=== PATIENT | male | born 1990 | race Caucasian/White ===

== ENCOUNTER 2018-10-10 02:54 | Emergency (ER) | payer BC, OTHER ==
[2018-10-10] MEDS ORDERED: ONDANSETRON 4 MG/2 ML VIAL IVP STA (03:17)
[2018-10-10] MEDS ORDERED: GLUCAGON 1 MG/ML VIAL IVP STA (03:17)
--- NOTE | 2018-10-10 03:17 | ED ---
General Adult HPI - General Chief complaint: Recheck/Abnormal Lab/Rx Stated complaint: Food stuck in throat Source: patient Mode of arrival: ambulatory - History of Present Illness Initial comments: Chapo is a previously healthy 28-year-old male who presents the emergency department today for evaluation of esophageal food bolus. Patient reports that he ate a roast around 7 PM, he is a sensation that it is stuck in his esophagus. Patient reports he's had this sensation in the past when eating, however usually resolves within 20 is 30 minutes. Patient reports that he has been drinking carbonated soda and water throughout the evening continues to throw it up. . Patient reports he did have endoscopy years ago and was told that he had sores in his esophagus, he doesn't recall the exact details of why he had the endoscopy or what the diagnosis were. He does not follow with GI. - Related Data Home Medications Medication Instructions Recorded Confirmed Dextroamphetamine/Amphetamine 20 mg PO BID 10/10/18 10/10/18 [Adderall] Allergies Allergy/AdvReac Type Severity Reaction Status Date / Time No Known Allergies Allergy Verified 10/10/18 03:10 Review of Systems ROS Statement: Those systems with pertinent positive or pertinent negative responses have been documented in the HPI. ROS Other: All systems not noted in ROS Statement are negative. Past Medical History Past Medical History: No Reported History History of Any Multi-Drug Resistant Organisms: None Reported Additional Past Surgical History / Comment(s): Tubes in his ears, [place] teeth removed Past Psychological History: ADD/ADHD Smoking Status: Never smoker Past Alcohol Use History: Occasional Past Drug Use History: Marijuana General Exam - General Exam Comments Initial Comments: Physical Exam GENERAL: Patient is well-developed and well-nourished. Patient is nontoxic and well-hydrated and is in mild distress, appears uncomfortable HENT: Normocephalic, Atraumatic. EYES: PERRL, EOMI PULMONARY: Unlabored respirations. No audible rales rhonchi or wheezing was noted. CARDIOVASCULAR: There is a regular rate and rhythm without any murmurs gallops or rubs. ABDOMEN: Soft and nontender with normal bowel sounds. SKIN: Skin is clear with no lesions or rashes and otherwise unremarkable. : Deferred NEUROLOGIC: Patient is alert and oriented x3. Moving all extremities spontaneously MUSCULOSKELETAL: Normal extremities with adequate strength and full range of motion. No lower extremity swelling or edema. No calf tenderness. PSYCHIATRIC: Normal psychiatric evaluation. Limitations: no limitations Course Vital Signs 10/10/18 03:06 Temperature 98.3 F Pulse Rate 86 Respiratory 20 Rate Blood Pressure 132/89 O2 Sat by Pulse 99 Oximetry Medical Decision Making - Medical Decision Making Patient was seen and evaluated, history is obtained from patient Patient's history and physical exam are concerning for an esophageal food bolus the patient reports a sensation of having food stuck in his esophagus 8 hours after eating roast We'll attempt to treat with glucagon and Zofran Patient given glucagon, zofran, attempted to drink rajwinder ruben, unable tolerate by mouth intake Patient care was discussed with GI numerical control machine operator Dr. Ricks who recommends IV fluids and plan for endoscopy at 7 AM he will contact the endoscopy team She was updated on plan is agreeable Morphine was ordered for discomfort Feeding worsen the patient's nausea and he vomited, he did vomit up a large unchewed piece of beef. Patient reports resolution of his discomfort after vomiting. Patient able to tolerate oral secretions and is drinking water without difficulty. At this time the patient stable for discharge home. I did discuss with the patient the need to slow down all eating and she will more thoroughly as he reports that food impaction such as this happen to him frequently. All questions pertaining care were answered the best my ability return parameters were discussed patient was discharged home in stable condition. Disposition Clinical Impression: Esophageal obstruction due to food impaction Disposition: HOME SELF-CARE Condition: Good Instructions: Esophageal Foreign Body (ED) Is patient prescribed a controlled substance at d/c from ED?: No Referrals: Bernadette Busch DO [Primary Care Provider] - 1-2 days Sunday Schaffer MD [STAFF PHYSICIAN] - 1-2 days Time of Disposition: 05:13
[2018-10-10] MEDS ORDERED: MORPHINE SULFATE 4 MG/ML SYRINGE IVP STA (03:57)
[2018-10-10] MEDS ORDERED: SODIUM CHLORIDE 0.9% 1,000 ML IV ONE (03:57)
[2018-10-10] MEDS ORDERED: SODIUM CHLORIDE 0.9% 1,000 ML IV SCH (04:00)
[2018-10-10 05:46] VITALS: BP 131/82; PULSE 83; RESP 18; TEMP 97.9
== END 2018-10-10 05:27 | disposition home or self-care (01) ==
LOC: EC 02:54
DX: T18.128A Food in esophagus causing other injury, initial encounter (principal); F90.9 Attention-deficit hyperactivity disorder, unspecified type; Z79.899 Other long term (current) drug therapy
CPT/HCPCS: 99283; 96374; 96375 ×2; 96361; J2270; J1610; J2405

== ENCOUNTER 2020-10-12 19:57 | Emergency (ER) | payer BC, OTHER ==
[2020-10-12 20:02] VITALS: BP 127/75; PULSE 93; RESP 16; TEMP 98.1
[2020-10-12] MEDS ORDERED: PROPARACAINE 0.5% OPHTH DROPS 15 ML BTL RIGHT EYE STA (20:03)
[2020-10-12] MEDS ORDERED: FLUORESCEIN STRIPS 1 MG STRIP RIGHT EYE ONE (20:03)
--- NOTE | 2020-10-12 20:04 | ED ---
Eye Problem HPI - General Chief complaint: Eye Problems Stated complaint: Poss object in right eye Time Seen by Provider: 10/12/20 20:03 Source: patient Mode of arrival: ambulatory Limitations: no limitations - History of Present Illness Initial comments: 30-year-old male presenting to the emergency department with a chief complaint of foreign body in the right eye. Patient states he was cutting a [place] tree when a branch hit him in the face, particularly on the right eye. Patient reports he removed a piece of the branch that was stuck inside of his eye. She did wear contacts. States there was mild pain when the incident occurred. He did notice some blood. Denies any pain with extraocular movements. States this occurred about one hour prior to arrival. - Related Data Home Medications Medication Instructions Recorded Confirmed Dextroamphetamine/Amphetamine 20 mg PO BID 10/10/18 10/10/18 [Adderall] Previous Rx's Medication Instructions Recorded Tobramycin [Tobrex 0.3% Ophth Soln] 1 drop RIGHT EYE Q4HR #5 ml 10/12/20 Allergies Allergy/AdvReac Type Severity Reaction Status Date / Time No Known Allergies Allergy Verified 10/12/20 20:02 Review of Systems ROS Statement: Those systems with pertinent positive or pertinent negative responses have been documented in the HPI. ROS Other: All systems not noted in ROS Statement are negative. Past Medical History Past Medical History: No Reported History History of Any Multi-Drug Resistant Organisms: None Reported Additional Past Surgical History / Comment(s): Tubes in his ears, [place] teeth removed Past Psychological History: ADD/ADHD Smoking Status: Never smoker Past Alcohol Use History: Occasional Past Drug Use History: Marijuana General Exam Limitations: no limitations General appearance: alert, in no apparent distress Head exam: Present: atraumatic, normocephalic, normal inspection Eye exam: Present: normal appearance, PERRL, EOMI, conjunctival injection, other (Chemosis noted. No signs of puncture of the globe. No teardrop pupil. No foreign bodies detected. Negative Fred sign) Pupils: Present: normal accommodation ENT exam: Present: normal exam, normal oropharynx, mucous membranes moist, TM's normal bilaterally, normal external ear exam Neck exam: Present: normal inspection, full ROM. Absent: tenderness Respiratory exam: Present: normal lung sounds bilaterally. Absent: respiratory distress, wheezes, rales Cardiovascular Exam: Present: regular rate, normal rhythm, normal heart sounds Extremities exam: Present: normal inspection, full ROM, normal capillary refill. Absent: tenderness, pedal edema, joint swelling, calf tenderness Back exam: Present: normal inspection, full ROM. Absent: tenderness, CVA tenderness (R), CVA tenderness (L), muscle spasm, paraspinal tenderness, vertebral tenderness Neurological exam: Present: alert, oriented X3 Psychiatric exam: Present: normal affect, normal mood Skin exam: Present: warm, dry, intact, normal color Course Vital Signs 10/12/20 19:58 Temperature 98.1 F Pulse Rate 93 Respiratory 16 Rate Blood Pressure 127/75 O2 Sat by Pulse 98 Oximetry Medical Decision Making - Medical Decision Making 30-year-old male presenting to emergency Department with a chief complaint of right eye pain. On physical examination, patient has no foreign body in the ri ght eye. He does have some mild conjunctiva and chemosis noted in the right eye. There appears to be no globe puncture. His intraocular pressure is 12 bilaterally. Negative Fred sign. There appears to be a very small laceration to the lateral aspect of the right eye where the conjunctiva meets the eyelid. There is some pooling of the fluorescein stain in that region as well. Patient will be started on Tobrex. also examined the patient and is in agreement with the treatment plan. Patient was to follow-up with ophthalmology in the morning. Strict return parameters were thoroughly discussed with patient was understanding and agreeable. Case discussed physician. Disposition Clinical Impression: Injury of eye, right, superficial, Corneal abrasion Disposition: HOME SELF-CARE Condition: Stable Instructions (If sedation given, give patient instructions): Abrasion (ED) Additional Instructions: Take prescribed medication as directed. Follow-up with the chromosomal disorders counselor. Return to emergency department if symptoms worsen. Prescriptions: Tobramycin [Tobrex 0.3% Ophth Soln] 1 drop RIGHT EYE Q4HR #5 ml Is patient prescribed a controlled substance at d/c from ED?: No Referrals: None,Stated [Primary Care Provider] - 1-2 days Hallie Plasencia MD [STAFF PHYSICIAN] - 1-2 days Time of Disposition: 20:43
[2020-10-12] MEDS ORDERED: TOBRAMYCIN 0.3% OPHTH DROPS 5 ML BTL RIGHT EYE STA (20:52)
== END 2020-10-12 21:17 | disposition home or self-care (01) ==
LOC: EC 19:57
DX: S05.01XA Injury of conjunctiva and corneal abrasion without foreign body, right eye, initial encounter (principal); F90.9 Attention-deficit hyperactivity disorder, unspecified type; Z79.899 Other long term (current) drug therapy; W22.8XXA Striking against or struck by other objects, initial encounter; Y93.89 Activity, other specified
CPT/HCPCS: 99283

== ENCOUNTER 2023-08-30 07:32 | Emergency (ER) | payer OTHER, BC ==
[2023-08-30] MEDS ORDERED: DIPH,PERTUS(ACELL)TETVAC-LF 0.5 ML VIAL IM ONE (07:40)
[2023-08-30] MEDS ORDERED: SODIUM CHLORIDE 0.9% 1,000 ML IV STA (07:40)
[2023-08-30] MEDS ORDERED: fentaNYL (PF) 50 MCG/ML 2 ML AMP IVP ONE (07:45)
[2023-08-30 07:53] LABS: Glucose,Whole Blood 79 mg/dL (70-110)
[2023-08-30 07:54] LABS: Basophils % (A) 0 %; Eosinophils # (A) 0.3 k/uL (0-0.7); Eosinophils % (A) 4 %; HCT 47.2 % (39.0-53.0); Lymphocytes # (A) 2.6 k/uL (1.0-4.8); Lymphocytes % (A) 28 %; MCH 31.4 pg (25.0-35.0); MCHC 33.9 g/dL (31.0-37.0); MCV 92.6 fL (80.0-100.0); Mean Platelet Volume 8.4; Monocytes # (A) 0.4 k/uL (0-1.0); Monocytes % (A) 4 %; Neutrophils # (A) 5.7 k/uL (1.3-7.7); Neutrophils % (A) 62 %; Platelet Count 297 k/uL (150-450); RDW 12.2 % (11.5-15.5); WBC 9.2 k/uL (3.8-10.6)
[2023-08-30 08:00] LABS: ALT 38 U/L (4-49); AST 39 U/L (17-59); African American GFR (CKD) >90 (>60 ml/min/1.73 sqM); Albumin 4.2 g/dL (3.5-5.0); Alcohol <10 mg/dL; Alkaline Phosphatase 53 U/L (38-126); Anion Gap 8 mmol/L; Blood Urea Nitrogen 18 mg/dL (9-20); Calcium 9.2 mg/dL (8.4-10.2); Carbon Dioxide 27 mmol/L (22-30); Chloride 104 mmol/L (98-107); Glucose 108 mg/dL (74-99); INR 0.9 (<1.2); Non-African American GFR(CKD) >90 (>60 ml/min/1.73 sqM); Partial Thromboplastin Time 25.2 sec (22.0-30.0); Potassium 5.1 mmol/L (3.5-5.1); Prothrombin Time 10.3 sec (10.0-12.5); Sodium 139 mmol/L (137-145); Total Bilirubin 0.8 mg/dL (0.2-1.3); Total Protein 6.9 g/dL (6.3-8.2)
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
[2023-08-30] MEDS ORDERED: MORPHINE SULFATE 4 MG/ML SYRINGE IVP STA ×2 (08:25→09:25)
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
[2023-08-30 08:50] VITALS: BP 122/98; PULSE 73; RESP 16; TEMP 98.1
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
[2023-08-30 10:37] LABS: Appearance,Urine Clear (Clear); Bilirubin,Urine Negative (Negative); Blood,Urine Small (Negative); Color,Urine Colorless; Glucose,Urine (UA) Negative (Negative); Ketones,Urine Negative (Negative); Leukocyte Esterase,Urine Negative (Negative); Mucus,Urine Rare /hpf; Nitrite,Urine Negative (Negative); Protein,Urine Negative (Negative); RBC,Urine 74 /hpf (0-5); Specific Gravity,Urine 1.039 (1.001-1.035); Urobilinogen,Urine <2.0 mg/dL (<2.0); WBC,Urine <1 /hpf (0-5)
[2023-08-30] MEDS ORDERED: MORPHINE SULFATE 2 MG/ML SYRINGE IVP STA (10:39)
[2023-08-30] MEDS ORDERED: LIDOCAINE 5% PATCH TOPICAL STA (10:39)
[2023-08-30] MEDS ORDERED: KETOROLAC 15 MG/ML 1 ML VIAL IVP STA (10:39)
[2023-08-30 10:44] LABS: Amphetamine Screen,Urine Not Detected (NotDetected); Barbiturate Screen,Urine Not Detected (NotDetected); Benzodiazepines Screen,Urine Not Detected (NotDetected); Cocaine Screen,Urine Not Detected (NotDetected); Methadone Screen, Urine Not Detected (NotDetected); Opiate Screen,Urine Detected (NotDetected); Oxycodone Screen, Urine Not Detected (NotDetected); Phencyclidine Screen,Urine Not Detected (NotDetected); Tricyclic Antidepressant,Urine Not Detected (NotDetected); Urn Cannabinoid Scrn Detected (NotDetected)
[2023-08-30] MEDS ORDERED: ACET/COD 300 MG/30 MG STARTER PACK 6 TAB BTL PO STA (10:45)
== END 2023-08-30 11:05 | disposition home or self-care (01) ==
LOC: EC 07:32
DX: S73.101A Unspecified sprain of right hip, initial encounter (principal); F12.90 Cannabis use, unspecified, uncomplicated; Z86.59 Personal history of other mental and behavioral disorders; Z23 Encounter for immunization; V89.2XXA Person injured in unspecified motor-vehicle accident, traffic, initial encounter; Y92.411 Interstate highway as the place of occurrence of the external cause
CPT/HCPCS: 99291; 90471; 96374; 96375 ×2; 96376 ×2; 96361; 36415; 93005; 86900; 86901; 80053; 84484; 85025; 85610; 85730; 86850; 81001; 80306; 80320; 72170; 73552; 71045; 72128; 72125; 72131; 70450; 71260; 74177; 90715; J2270 ×2; J3010; J1885; Q9967